=== PATIENT | female | born 1980 | race Caucasian/White ===

== ENCOUNTER → 2016-08-12 | Outpatient (CLI) | payer OTHER ==
--- NOTE | 2016-08-12 16:41 | RAD ---
Indication pelvic pain. 2 weeks . Initially transabdominal scans were obtained. The initial transabdominal scans were supplemented with transvaginal scans. The uterus is slightly enlarged compatible with the recent state. Incidental note is made that the uterus is retroverted. There is some echogenic debris within the endometrial cavity suggesting retained products of conception. The ovaries appear unremarkable. A minimal amount of free fluid was noted in the pelvis. IMPRESSION: Suspect retained products of conception.
== END | disposition home or self-care (01) ==
LOC: US 13:59
PROVIDERS: ATTEND Family Medicine
DX: O99.89 Other specified diseases and conditions complicating pregnancy, childbirth and the puerperium (principal)
CPT/HCPCS: 76830; 76856